=== PATIENT | female | born 2000 | race Native Hawaiian/Other Pacific Islander ===

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

== ENCOUNTER 2019-01-09 09:46 | Outpatient (CLI) | payer OTHER | END 2019-01-09 21:47 | disposition home or self-care (01) | LOC: LABW 09:46 | DX: E03.9 Hypothyroidism, unspecified (principal) | CPT/HCPCS: 36415; 84439; 84443 ==